=== PATIENT | female | born 1985 | race Caucasian/White ===

== ENCOUNTER 2019-02-03 22:23 | Emergency (ER) | payer OTHER ==
[~2019-02-03] VITALS: Ht 160 cm; Wt 116.1 kg
[2019-02-03 22:24] VITALS: BP 172/89
[2019-02-03] MEDS ORDERED: ZOFRAN ODT4 MG PO (23:35)
== END 2019-02-03 23:50 | disposition home or self-care (01) ==
LOC: ER 22:23
DX: G89.18 Other acute postprocedural pain (principal); R10.84 Generalized abdominal pain; E66.01 Morbid (severe) obesity due to excess calories; F17.210 Nicotine dependence, cigarettes, uncomplicated; Z68.42 Body mass index [BMI] 45.0-49.9, adult; Z90.49 Acquired absence of other specified parts of digestive tract; Z90.710 Acquired absence of both cervix and uterus

== ENCOUNTER 2019-04-05 03:45 | Emergency (ER) | payer OTHER ==
[~2019-04-05] VITALS: Ht 160 cm; Wt 115.7 kg
[~2019-04-05 03:45] MED LIST: ZOFRAN ODT4 MG PO
[2019-04-05] MEDS ORDERED: BUTALBIT-ACETA1 EACH PO (03:58)
[2019-04-05 04:54] VITALS: BP 121/58
== END 2019-04-05 04:55 | disposition home or self-care (01) ==
LOC: ER 03:45
DX: G44.059 Short lasting unilateral neuralgiform headache with conjunctival injection and tearing (SUNCT), not intractable (principal); R11.10 Vomiting, unspecified; F17.210 Nicotine dependence, cigarettes, uncomplicated; Z90.710 Acquired absence of both cervix and uterus; Z90.49 Acquired absence of other specified parts of digestive tract

== ENCOUNTER 2020-07-14 16:25 | Emergency (ER) | payer OTHER ==
[~2020-07-14] VITALS: Ht 160 cm; Wt 117.9 kg
[~2020-07-14 16:25] MED LIST changes: +BUTALBIT-ACETA1 EACH PO
[2020-07-14 17:57] VITALS: BP 113/53
[2020-07-14] MEDS ORDERED: NAPROSYN500 MG PO (18:02)
== END 2020-07-14 18:14 | disposition home or self-care (01) ==
LOC: ER 16:25
DX: M79.671 Pain in right foot (principal); G43.909 Migraine, unspecified, not intractable, without status migrainosus; F17.210 Nicotine dependence, cigarettes, uncomplicated; Z90.710 Acquired absence of both cervix and uterus; Z90.89 Acquired absence of other organs; Z90.49 Acquired absence of other specified parts of digestive tract; Z79.899 Other long term (current) drug therapy

== ENCOUNTER 2020-09-25 14:26 | Emergency (ER) | payer OTHER ==
[~2020-09-25] VITALS: Ht 160 cm; Wt 117.9 kg
[~2020-09-25 14:26] MED LIST changes: +NAPROSYN500 MG PO
[2020-09-25 15:11] LABS: URINE BILIRUBIN NEGATIVE (Negative); URINE BLOOD TRACE (Negative); URINE CLARITY CLEAR; URINE COLOR YELLOW; URINE GLUCOSE-RANDOM* NEGATIVE (Negative); URINE KETONES 1+ (Negative); URINE LEUKOCYTES-REFLEX NEGATIVE (Negative); URINE NITRITE-REFLEX NEGATIVE (Negative); URINE PROTEIN (DIPSTICK) NEGATIVE (Negative); URINE UROBILINOGEN 0.2 E.U./dl (0.2-1.0)
[2020-09-25 15:27] LABS: ABSOLUTE NEUTROPHILS 9.8 thou/uL (1.4-8.2); BASOPHILS 0.5 % (0.0-2.0); EOSINOPHILS 1.1 % (0.0-3.0); HEMOGLOBIN 14.9 gm/dL (12.0-15.0); LYMPHOCYTES 24.4 % (24.0-44.0); MCH 29.5 pg (26.0-34.0); MCHC 33.1 g/dL (28.0-37.0); PLATELET COUNT 348 thou/uL (150-400); RBC 5.06 mil/uL (4.20-5.00); RDW 13.5 % (10.5-14.5)
[2020-09-25 15:43] LABS: ANION GAP 12 mmol/L (7-16); BUN 9 mg/dL (7-18); CALCIUM 8.9 mg/dL (8.5-10.1); CHLORIDE 105 mmol/L (98-107); CO2 22 mmol/L (21-32); CREATININE 0.4 mg/dL (0.6-1.0); GLUCOSE 101 mg/dL (74-106); POTASSIUM 4.9 mmol/L (3.5-5.1); SODIUM 139 mmol/L (136-145)
[2020-09-25 15:53] LABS: TROPONIN-I <0.06 ng/mL (<0.06)
[2020-09-25] MEDS ORDERED: MOBIC7.5 MG PO (17:50)
[2020-09-25] MEDS ORDERED: TESSALON PERLE100 MG PO (17:50)
[2020-09-25] MEDS ORDERED: ONDANSETRON HCL4 M2 PO (17:50)
[2020-09-25 17:53] VITALS: BP 140/71
--- NOTE | 2020-09-26 07:13 | EKG ---
[address] [address] ELECTROCARDIOGRAM REPORT Name: DANNIE CHRISHER Springer Room #: DEP [facility] [id number] Admission: 09/25/20 Attend Phys: Discharge: 09/25/20 Date of : 83 Report #: [id number] [facility] ED Test Date: 2020-09-25 Test Time: 14:34:24 Pat Name: BASILIO CHRIS Department: Room: Gender: F Janitor Caretaker: unknown : 1985 Requested By: Martín Pete Order Number: [id number] MD: Hayder Gardner Measurements Intervals [place] Rate: 66 P: 31 HI: 130 QRS: 47 QRSD: 92 T: 47 QT: 419 QTc: 439 Interpretive Statements Sinus rhythm No previous ECG available for comparison Electronically Signed On 09-26-2020 7:13:46 CDT by Hayder Gardner [email or web address] <ELECTRONICALLY SIGNED> By: Hayder Gardner MD, [facility] 09/26/20 0713 1434 1434 Haydre Gardner MD, FACC /EPI
== END 2020-09-25 17:53 | disposition home or self-care (01) ==
LOC: ER 14:26
PROVIDERS: Nurse Practitioner
DX: R11.2 Nausea with vomiting, unspecified (principal); R07.89 Other chest pain; G43.909 Migraine, unspecified, not intractable, without status migrainosus; F17.210 Nicotine dependence, cigarettes, uncomplicated; Z90.710 Acquired absence of both cervix and uterus; Z90.89 Acquired absence of other organs; Z90.49 Acquired absence of other specified parts of digestive tract; Z79.1 Long term (current) use of non-steroidal anti-inflammatories (NSAID); Z79.899 Other long term (current) drug therapy; Z79.891 Long term (current) use of opiate analgesic; Z20.822 Contact with and (suspected) exposure to COVID-19